=== PATIENT | male | born 1985 | race Caucasian/White ===

== ENCOUNTER 2019-08-14 13:19 | Emergency (ER) | payer OTHER ==
[~2019-08-14] VITALS: Ht 175.3 cm; Wt 86.2 kg
[2019-08-14 14:02] LABS: BASOPHILS # (AUTO) 0.1 K/uL (0.0-8.0); BASOPHILS % (AUTO) 0.9 % (0.0-2.0); EOSINOPHILS # (AUTO) 0.1 K/uL (0.0-0.7); EOSINOPHILS % (AUTO) 0.8 % (0.0-7.0); HEMATOCRIT 46.4 % (36.7-47.1); HEMOGLOBIN 15.7 g/dL (12.5-16.3); LYMPHOCYTES # (AUTO) 2.3 K/uL (20.0-40.0); MEAN CORPUSCULAR HEMOGLOBIN 30.8 uug (23.8-33.4); MEAN CORPUSCULAR HGB CONC 34 g/dL (32.5-36.3); MONOCYTES # (AUTO) 0.5 K/uL (2.0-10.0); MONOCYTES % (AUTO) 6.3 % (0.0-11.0); NEUTROPHILS # (AUTO) 4.5 K/uL (1.8-8.9); PLATELET COUNT (AUTO) 208 K/uL (152-348); WHITE BLOOD COUNT (AUTO) 7.4 K/uL (3.6-10.2)
[2019-08-14 14:09] LABS: CREATININE 0.8 mg/dL (0.6-1.3); POTASSIUM 3.9 mmol/L (3.5-5.1)
[2019-08-14 14:14] LABS: BILIRUBIN,DIRECT 0.1 mg/dL (0.0-0.2); BILIRUBIN,TOTAL 0.7 mg/dL (0.2-1.0); TOTAL PROTEIN, SERUM 7.6 g/dL (6.4-8.2)
[2019-08-14] MEDS ORDERED: SWABABLE VALVE TRANSFER SET EA MC ONE (14:33)
[2019-08-14] MEDS ORDERED: IOHEXOL 350 100 ML INFUS..BTL ONE (14:33)
[2019-08-14] MEDS ORDERED: IV NORMAL SALINE 250 ML IV ONE (14:33)
--- NOTE | 2019-08-14 15:00 | NUR ---
marvel sauceda at bedside talking to pt.
[2019-08-14] MEDS ORDERED: ASPIRIN 325 MG TABLET PO ONE (16:00)
[2019-08-14] MEDS ORDERED: IV NORMAL SALINE 1000 ML BAG IV ONE (16:00)
--- NOTE | 2019-08-14 16:00 | NUR ---
er md at bedside talking to pt regarding pt care. pt so at bedside.
[2019-08-14] MEDS ORDERED: ASPIRIN 325 MG TABLET ONE (16:04)
--- NOTE | 2019-08-14 16:29 | NUR ---
Patient does not wish to proceed with medical care recommended by Dr. Adams walton ). Patient given information related to possible complications, up to and including , which could occur as a result of leaving the hospital at this time. Patient verbalizes understanding of risks involved due to leaving against medical advice. Patient has signed AMA form.copy of all the studies provided for pt.
--- NOTE | 2019-08-14 16:51 | NUR ---
pt walked in steady gait. pt accompanied by so.
[2019-08-14 16:52] VITALS: BP 131/77
== END 2019-08-14 16:54 | disposition left against medical advice (07) ==
LOC: ER 13:19
DX: R20.2 Paresthesia of skin (principal); R53.1 Weakness; R42 Dizziness and giddiness
CPT/HCPCS: 36415; 70450; 70496; 70498; 80048; 80076; 85025; 85730; 93005; 99284; Q9967; A4663; J7030; J7050